=== PATIENT | female | born 1935 | race Caucasian/White ===

== ENCOUNTER → 2017-08-29 | Outpatient (CLI) | payer MEDICARE, OTHER | END | disposition home or self-care (01) | LOC: KCIC US 12:15 | DX: I65.23 Occlusion and stenosis of bilateral carotid arteries (principal) | CPT/HCPCS: 93880 ==

== ENCOUNTER → 2018-09-24 | Outpatient (CLI) | payer MEDICARE, OTHER ==
[2015-02-21 20:00] VITALS: BP 146/76
[~2018-09-24] MED LIST: ALEN70TA3 PO; ASPI325T8 PO; ATOR10TA PO; LEVO75TA PO
--- NOTE | 2018-09-24 16:39 | KCIC ---
Exam : Carotid Duplex with Grayscale Ultrasound and Spectral and Color Doppler Analysis 09/24/2018 4:29 PM Clinical Indications: Carotid stenosis Comparison study: Carotid Doppler May 10, 2015. PQRS Compliance Statement - Stenosis calculations for CT, MR and conventional angiography are based upon measurement of the distal ICA diameter in accordance with the NASCET methodology. Stenosis calculations for carotid ultrasound studies are derived from validated velocity criteria which are known to correlate with the NASCET methodology. Findings: The common, internal and external carotid arteries were examined by grayscale, color and spectral Doppler ultrasound. Diffuse atherosclerotic vascular disease is noted. This is most prominent in the carotid bulbs. Vertebral flow is antegrade bilaterally. Within the mid and distal right internal carotid artery there are elevated velocities. Elevated velocities of the bilateral subclavian arteries noted measuring 164 cm/s on the right and 185 cm/s on the left. The following are the velocities and ratios in the carotid arteries on both sides: RIGHT ICA PV: 173cm/sec RIGHT CCA PV: 108cm/sec RIGHT ICA ED: 33cm/sec RIGHT IC/CCPV: Less than 2 RIGHT VERTEBRAL: antegrade flow LEFT ICA PV: 194cm/sec LEFT CCA PV: 112cm/sec LEFT ICA ED: 30cm/sec LEFT IC/CCPV: Less than 2 LEFT VERTEBRAL: antegrade flow <50% ICA Stenosis: PSV < 125cm/s (EDV < 40cm/s; SVR < 2.0) 50-69% ICA Stenosis: PSV < 125-229cm/s (EDV 40-99cm/s; SVR 2.0-3.9) >70% ICA Stenosis: PSV > 230cm/s (EDV >100cm/s; SVR >4.0) Impression: 1.Elevated velocities in the bilateral internal carotid artery suggestive of 50-69 percent stenosis. Finding of significant elevated velocities on the left is new since comparison study. 2. Elevated velocities within the bilateral subclavian arteries. 3. CT angiography could be considered for further characterization as clinically indicated Electronically signed by: Jayme Esparza MD (09/24/2018 4:36 PM) [id number]
== END | disposition home or self-care (01) ==
LOC: KCIC US 12:19
PROVIDERS: ATTEND Family Medicine
DX: I65.23 Occlusion and stenosis of bilateral carotid arteries (principal)
CPT/HCPCS: 93880

== ENCOUNTER → 2018-10-15 | Outpatient (CLI) | payer MEDICARE, OTHER ==
[2015-02-21 20:00] VITALS: BP 146/76
[~2018-10-15] MED LIST changes: +IOHEXOL 300 MG/ML 100ML VIAL. IV ONE
--- NOTE | 2018-10-15 15:51 | KCIC ---
CTA neck History: Carotid stenosis Technique: After bolus of intravenous contrast, volumetric CT data acquisition was acquired of the neck. Multiplanar reconstruction images to include MIP and 3-D reconstruction images are submitted. Exposure: One or more of the following individualized dose reduction techniques were utilized for this examination: 1. Automated exposure control 2. Adjustment of the mA and/or kV according to patient size 3. Use of iterative reconstruction technique. Comparison: Carotid Doppler exam September 2018 Any determination of stenosis is based on NASCET criteria. Findings: There are normal anatomic origins of the great vessels. There is mild calcified plaque of the left carotid bulb and proximal left external carotid artery without significant stenosis, no significant stenosis of the left cervical internal carotid artery. There is some tortuosity of the proximal to mid left internal carotid artery. There is mild calcified plaque near the right carotid bulb and proximal right external carotid artery. There is no significant focal stenosis of the right cervical internal carotid artery. There is no dissection flap identified of the cervical arterial vasculature. Both vertebral arteries are visualized, slightly dominant left vertebral artery. There is some tortuosity of the proximal cervical vertebral arteries bilaterally. No significant focal stenosis is identified of either vertebral artery. Both vertebral arteries constitute a basilar artery. There is mild bronchiectasis left upper lobe near apex. There is a noncalcified left upper lobe pulmonary nodule about 0.5-0.6 cm image 537 series 6. There is also some other noncalcified left apical density present extending to the pleural surface. There is degree of emphysema of the visualized lung bases. There is multilevel cervical facet degenerative change. There is opacification of about half of the left sphenoid sinus with possible air-fluid level. Impression: 1. There is no significant stenosis of the cervical arterial vasculature. 2. There is a small noncalcified left upper lobe pulmonary nodule. If there are increased risk factors for neoplasm, dedicated chest CT to fully evaluate for nodules is recommended. Regarding the visualized nodule, optional 12 month follow-up could be performed as per revised Fleischner guidelines. Other left apical density although is more likely component of fibrotic change. 3. There is partial opacification of the left sphenoid sinus, could be due to acute sinusitis. Electronically signed by: Chaitanya Bishop MD (10/15/2018 3:48 PM) [facility]
== END | disposition home or self-care (01) ==
LOC: KCIC CT 12:35
PROVIDERS: ATTEND Family Medicine
DX: I65.22 Occlusion and stenosis of left carotid artery (principal)
CPT/HCPCS: 70498; 82565; Q9967

== ENCOUNTER → 2020-03-08 | Outpatient (CLI) | payer MEDICARE, OTHER ==
[2015-02-21 20:00] VITALS: BP 146/76
[~2020-03-08] MED LIST changes: -IOHEXOL 300 MG/ML 100ML VIAL. IV ONE; -LEVO75TA PO; +LEVO75TA90 PO
--- NOTE | 2020-03-08 11:47 | KCIC ---
EXAM: CT CHEST WITHOUT CONTRAST HISTORY: Left upper lobe lung nodule follow-up COMPARISON: CT angiogram neck 10/15/2018 TECHNIQUE: Helical CT of the chest performed without contrast. Coronal and sagittal reformats were obtained. One or more of the following individualized dose reduction techniques were utilized for this examination: 1. Automated exposure control 2. Adjustment of the mA and/or kV according to patient size 3. Use of iterative reconstruction technique. FINDINGS: Thyroid gland and thoracic inlet: Unremarkable. Heart and great vessels: Heart is normal in size. There are pericardial calcifications noted. No pericardial effusion. Coronary artery calcifications are seen. The thoracic aorta is normal in caliber. Mediastinum and live: No lymphadenopathy. Lungs and pleura: The 5 mm noncalcified pulmonary nodules on the left apex is unchanged. There is a 3 mm pulmonary nodule in the left lower lobe (image 126, series 6). Pleural-parenchymal scarring and mild traction bronchiectasis in the medial left apex is unchanged. Chest wall and axillae: Asymmetric outer right breast tissue relative to the left. No axillary lymphadenopathy. Upper abdomen: Prominent main pancreatic duct. There is a 7 mm hyperdense lesion in the superior left renal pole, likely a hemorrhagic cyst. Mild left hydronephrosis versus peripelvic cysts. Mild calcified aortic atherosclerosis. Bones: Mild thoracic degenerative disc disease. IMPRESSION: 1. Unchanged 5 mm nodule in the left apex. There is an additional 3 mm pulmonary nodule in the left lower lobe. Optional twelve-month follow-up CT could be obtained to ensure stability. 2. Pericardial calcifications. 3. Asymmetric increased breast tissue in the outer right breast relative to the left. Correlation could be made with mammogram to exclude mass as indicated. 4. Left peripelvic cysts versus mild hydronephrosis. This could be further evaluated by ultrasound. Electronically signed by: Chasity Lai MD (03/08/2020 11:44 AM) [id number]
== END ==
LOC: KCIC CT 09:07
PROVIDERS: ATTEND Family Medicine
DX: R91.8 Other nonspecific abnormal finding of lung field (principal); I31.1 Chronic constrictive pericarditis; J47.9 Bronchiectasis, uncomplicated; J94.8 Other specified pleural conditions; N64.89 Other specified disorders of breast; I70.0 Atherosclerosis of aorta; I25.10 Atherosclerotic heart disease of native coronary artery without angina pectoris; N28.89 Other specified disorders of kidney and ureter; N13.30 Unspecified hydronephrosis; M51.34 Other intervertebral disc degeneration, thoracic region
CPT/HCPCS: 71250

== ENCOUNTER 2020-03-29 10:13 | Observation (INO) | payer MEDICARE, OTHER ==
[~2020-03-29] VITALS: Ht 152.4 cm; Wt 52.2 kg
[2020-03-29] MEDS ORDERED: IV NORMAL SALINE 1000ML BAG 1,000 ML IV ONE (10:15)
--- NOTE | 2020-03-29 10:45 | PHYS DOC ---
Past Medical History Past Medical History: Diverticulosis, High Cholesterol, Hypothyroid Past Surgical History: Hysterectomy Smoking Status: Never Smoker Alcohol Use: Occasionally Drug Use: None General Adult EDM: Chief Complaint: Syncope HPI: HPI: Patient is a 84 year old female presents via EMS with syncopal episode which occurred approximately 30 minutes prior to arrival. Patient did not hit her head, but did have loss of bladder function. Patient thinks it is dehydration, has not had much fluid in past 24 hours. One week ago patient fell and had hit her head but no LOC. Patient is nauseas but no vomiting. Denies fever or chills. Denies known sick contacts. Denies chest pain. Denies known exposure of COVID-19. Review of Systems: Review of Systems: Constitutional: Denies fever or chills Eyes: Denies redness or eye pain HENT: Denies nasal congestion or sore throat Respiratory: Denies cough or shortness of breath Cardiovascular: Denies chest pain or palpitations GI: Denies abdominal pain and vomiting. Reports nausea : Denies dysuria or hematuria. Reports intermittent cloudy urine. Musculoskeletal: Denies back pain or joint pain Integument: Denies rash or skin lesions Neurologic: Denies headache, focal weakness or sensory changes; reports syncopal episode Complete systems were reviewed and found to be within normal limits, except as documented in this note. Current Medications: Current Medications Medications (Trade) Dose Ordered Sig/Komal Start Time Stop Time Status Last Admin Dose Admin Sodium Chloride 1,000 ml @ 1,000 mls/hr 1X ONCE 03/29/20 10:15 03/29/20 11:14 Allergies: Allergies: Allergies Coded Allergies Type Severity Reaction Last Updated Verified Sulfa (Sulfonamide Antibiotics) Allergy Intermediate 02/21/15 No acetaminophen Allergy Intermediate 02/21/15 No diphenhydramine Allergy Intermediate 02/21/15 No doxycycline Allergy Intermediate 02/21/15 No lorazepam Allergy Intermediate 02/21/15 No propoxyphene Allergy Intermediate 02/21/15 No Physical Exam: PE: Constitutional: Well developed, well nourished, no acute distress, non-toxic appearance HENT: Normocephalic, atraumatic Eyes: PERRL, EOMI, conjunctiva normal, no discharge Neck: Normal range of motion, no tenderness, supple Lungs & Thorax: No respiratory distress, equal chest rise and fall Abdomen: Soft, no tenderness Skin: Warm, dry, no erythema, no rash Extremities: No tenderness, ROM intact, no edema Neurologic: Alert and oriented X 3, normal motor function, normal sensory function, no focal deficits noted Psychologic: Affect normal, judgment normal EKG: EKG: @1021 sinus rhythm, no ST elevation, QRS 84 ms, QT/QTc 422/444 ms Radiology/Procedures: Radiology/Procedures: PROCEDURE: CT HEAD AND CERVICAL SPINE WO Examination: CT head and cervical spine without contrast CT HEAD INDICATION: Reason: syncope, pain COMPARISON: None Available. Exposure: One or more of the following individualized dose reduction techniques were utilized for this examination: 1. Automated exposure control 2. Adjustment of the mA and/or kV according to patient size 3. Use of iterative reconstruction technique TECHNIQUE: 5 mm contiguous axial images were obtained from the skull base to the vertex in both bone and soft tissue algorithm. FINDINGS: Mild bilateral periventricular white matter hypodensities likely chronic small vessel ischemic disease. No evidence of acute intracranial hemorrhage. No extra-axial fluid collections. No mass effect or midline shift. Ventricular size is appropriate. Basal cisterns are patent. No fractures identified.Greene-white differentiation is preserved.Globes and orbits are within normal limits. Moderate-sized mucous retention cyst or polyp identified in the left sphenoid sinus. IMPRESSION: No acute intracranial findings. CT CERVICAL SPINE INDICATION: Reason: syncope, pain COMPARISON: None Available. Technique: 2.5 mm contiguous axial images were obtained from the skull base through the cervicothoracic junction in both bone and soft tissue algorithm. Additional sagittal and coronal reconstructions were also performed. FINDINGS: Vertebral body height and alignment are maintained. Cervical lordosis is preserved. The lateral masses of C1 are aligned upon C2. No fractures identified. The bony canal is patent throughout. Moderate discoid loss identified in the cervical spine throughout the anterior osteophyte formation identified at C5, C6, C7 vertebral levels. The facets are well aligned. The paraspinous soft tissues are unremarkable. Visualized intracranial contents are unremarkable. Linear atelectasis or scarring left apical lung. IMPRESSION: 1. No acute fracture cervical spine. Correlate clinically. 2. Moderate degenerative changes cervical spine. Electronically signed by: Jay Kennedy MD (03/29/2020 11:11 AM) [id number] PROCEDURE: PORTABLE CHEST 1V PORTABLE CHEST 1V 03/29/2020 10:14 AM INDICATION: Syncope COMPARISON: CT chest 03/08/2020 TECHNIQUE: Portable frontal view of the chest is provided. FINDINGS: The cardiomediastinal silhouette is within normal limits. Lungs are clear. There are no significant pleural effusions. There is no pulmonary vascular congestion. No pneumothorax. No suspicious osseous abnormality. IMPRESSION: There is no acute cardiopulmonary process. Electronically signed by: Christine Spears MD (03/29/2020 11:27 AM) [facility] Course & Med Decision Making: Course & Med Decision Making Patient presents with report of syncopal episode prior to arrival. Patient reports 1 week ago she had also fallen and hit her head. Denies use of blood thinners. Denies any pain. Patient neurologically intact. NIHSS 0. Given age and history of head trauma a CT head/cervical spine obtained without acute finding. EKG stable. Labs obtained and posted to chart. Troponin within normal limits. Orthostatic vital signs positive with drop of greater then 20 and systolic blood pressure between sitting and standing. IV fluid hydration therefore provided. Patient lives alone. In discussion with patient and her daughter decision would be best to observe patient at this time. Patient requiring observation admission for further evaluation and treatment. Discussed with Dr. Dsouza (hospitalist) who is in agreement with admission. Discussed findings and plan with patient and family, who acknowledge understanding and agreement. Barron Disclaimer: Barron Disclaimer: This electronic medical record was generated, in whole or in part, using a voice recognition dictation system. Departure Departure Impression: Primary Impression: Syncope Qualified Codes: R55 - Syncope and collapse Disposition: ADMITTED INPT THIS HOSP (Observation) Admitting Physician: SHU (Lianna) Condition: STABLE Referrals: CINDI ELLIOTT MD (PCP) NIHSS Stroke Scale NIH Stroke Scale: NIH Stroke Scale Response (Comments) Value Level of Consciousness: 0 Alert/Responsive 0 LOC Questions: 0 Answers both correctly 0 LOC Commands: 0 Performs both tasks 0 Best Gaze: 0 Normal 0 Visual: 0 No visual loss 0 Facial Palsy: 0 Normal, symmetrical 0 Motor - Left Arm 0 No drift 0 Motor - Right Arm 0 No drift 0 Motor - Left Leg 0 No drift 0 Motor: Right Leg 0 No drift 0 Limb Ataxia: 0 Absent 0 Sensory: 0 No loss 0 Best Language: 0 Normal 0 Dysathria: 0 Normal 0 Extinction and Inattention: 0 Normal 0 Total 0 CROFT,CHEO Maria DO Mar 29, 2020 10:45
[2020-03-29 10:46] LABS: BASO # 0.1 x10^3/uL (0.0-0.2); BASO % 1 % (0-3); EOS # 0.4 x10^3/uL (0.0-0.7); EOS % 6 % (0-3); HEMATOCRIT 41.4 % (36.0-47.0); HEMOGLOBIN 13.9 g/dL (12.0-15.5); LYMPH # 1.5 x10^3/uL (1.0-4.8); LYMPH % 24 % (24-48); MEAN CORPUSCULAR HEMOGLOBIN 31 pg (25-35); MEAN CORPUSCULAR HGB CONC 34 g/dL (31-37); MEAN CORPUSCULAR VOLUME 91 fL (79-100); MONO # 0.4 x10^3/uL (0.0-1.1); MONO % 7 % (0-9); NEUT # 3.9 x10^3/uL (1.8-7.7); NEUT % 62 % (31-73); PLATELET COUNT 181 x10^3/uL (140-400); RED BLOOD COUNT 4.53 x10^6/uL (3.50-5.40); RED CELL DISTRIBUTION WIDTH 13.7 % (11.5-14.5); WHITE BLOOD COUNT 6.3 x10^3/uL (4.0-11.0)
[2020-03-29 10:56] LABS: PROTHROMBIN TIME PATIENT 11.7 SEC (11.7-14.0)
[2020-03-29 10:59] LABS: CALCIUM 8.9 mg/dL (8.5-10.1); CREATININE 0.8 mg/dL (0.6-1.0); GFR 68.7; POTASSIUM 3.9 mmol/L (3.5-5.1)
[2020-03-29 11:05] LABS: ALBUMIN 3.4 g/dL (3.4-5.0); ALBUMIN/GLOBULIN RATIO 1.1 (1.0-1.7); MAGNESIUM 2.2 mg/dL (1.8-2.4); TOTAL BILIRUBIN 0.4 mg/dL (0.2-1.0); TOTAL PROTEIN 6.5 g/dL (6.4-8.2)
--- NOTE | 2020-03-29 11:14 | RAD ---
Examination: CT head and cervical spine without contrast CT HEAD INDICATION: Reason: syncope, pain COMPARISON: None Available. Exposure: One or more of the following individualized dose reduction techniques were utilized for this examination: 1. Automated exposure control 2. Adjustment of the mA and/or kV according to patient size 3. Use of iterative reconstruction technique TECHNIQUE: 5 mm contiguous axial images were obtained from the skull base to the vertex in both bone and soft tissue algorithm. FINDINGS: Mild bilateral periventricular white matter hypodensities likely chronic small vessel ischemic disease. No evidence of acute intracranial hemorrhage. No extra-axial fluid collections. No mass effect or midline shift. Ventricular size is appropriate. Basal cisterns are patent. No fractures identified.Greene-white differentiation is preserved.Globes and orbits are within normal limits. Moderate-sized mucous retention cyst or polyp identified in the left sphenoid sinus. IMPRESSION: No acute intracranial findings. CT CERVICAL SPINE INDICATION: Reason: syncope, pain COMPARISON: None Available. Technique: 2.5 mm contiguous axial images were obtained from the skull base through the cervicothoracic junction in both bone and soft tissue algorithm. Additional sagittal and coronal reconstructions were also performed. FINDINGS: Vertebral body height and alignment are maintained. Cervical lordosis is preserved. The lateral masses of C1 are aligned upon C2. No fractures identified. The bony canal is patent throughout. Moderate discoid loss identified in the cervical spine throughout the anterior osteophyte formation identified at C5, C6, C7 vertebral levels. The facets are well aligned. The paraspinous soft tissues are unremarkable. Visualized intracranial contents are unremarkable. Linear atelectasis or scarring left apical lung. IMPRESSION: 1. No acute fracture cervical spine. Correlate clinically. 2. Moderate degenerative changes cervical spine. Electronically signed by: Jay Kennedy MD (03/29/2020 11:11 AM) [id number]
--- NOTE | 2020-03-29 11:30 | RAD ---
PORTABLE CHEST 1V 03/29/2020 10:14 AM INDICATION: Syncope COMPARISON: CT chest 03/08/2020 TECHNIQUE: Portable frontal view of the chest is provided. FINDINGS: The cardiomediastinal silhouette is within normal limits. Lungs are clear. There are no significant pleural effusions. There is no pulmonary vascular congestion. No pneumothorax. No suspicious osseous abnormality. IMPRESSION: There is no acute cardiopulmonary process. Electronically signed by: Christine Spears MD (03/29/2020 11:27 AM) [facility]
[2020-03-29 11:39] LABS: BILIRUBIN,URINE NEGATIVE (NEG); CLARITY,URINE CLEAR; COLOR,URINE YELLOW; NITRITE,URINE NEGATIVE (NEG); PH,URINE 7.5 (<5.0-8.0); PROTEIN,URINE NEGATIVE (NEG-TRACE); UROBILINOGEN,URINE 0.2 mg/dL (0.2 mg/dL)
[2020-03-29 11:48] LABS: BACTERIA,URINE FEW /HPF (0-FEW)
[2020-03-29] MEDS ORDERED: ASPIRIN 325 MG TABLET PO ONE (12:45)
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
[2020-03-29] MEDS ORDERED: ACETAMINOPHEN 325 MG TABLET. PO PRN (17:30)
[2020-03-29] MEDS ORDERED: ONDANSETRON PF 4 MG/2 ML VIAL. IV PRN (17:30)
[2020-03-29] MEDS ORDERED: DOCUSATE SODIUM 100 MG CAPSULE. PO PRN (17:30)
[2020-03-29] MEDS ORDERED: MAG HYDROX/ALUMINUM HYD/SIMETH 30 ML ORAL.SUSP PO PRN (17:30)
--- NOTE | 2020-03-29 19:45 | NUR ---
The patient, TEJAS ANTOINE, admitted to room 538, plan of care discussed, belongings are documented, use of call light demonstrated, did assist patient to restroom, she did display some unsteadiness in walk, gait, bed alarm on, patient info booklet given, explained the contents to patient, to monitor,
[2020-03-29 20:31] LABS: CALCIUM 8.5 mg/dL (8.5-10.1); CREATININE 0.8 mg/dL (0.6-1.0); GFR 68.7; POTASSIUM 3.8 mmol/L (3.5-5.1)
[2020-03-29] MEDS ORDERED: ATORVASTATIN CALCIUM 10 MG TABLET. PO SCH (21:00)
[2020-03-29] MEDS ORDERED: ENOXAPARIN 40 MG/0.4 ML SYRINGE. SQ SCH (21:00)
[2020-03-29 23:00] VITALS: BP 111/42
[2020-03-30] VITALS (7 sets, daily range): BP systolic 124–168; BP diastolic 34–55
--- NOTE | 2020-03-30 02:04 | NUR ---
Patient's Atorvastatin pulled, given to patient, dropped or lost in trash, so 2nd pill removed and given to the patient.
[2020-03-30 04:49] LABS: CHOLESTEROL/HDL RATIO 1.7
[2020-03-30] MEDS ORDERED: LEVOTHYROXINE 75 MCG TABLET PO SCH ×2 (06:00→07:30)
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
[2020-03-30] MEDS ORDERED: ASPIRIN 325 MG TABLET PO SCH (09:00)
--- NOTE | 2020-03-30 10:45 | PDOC2 ---
CARDIAC CONSULT DATE OF CONSULT Date of Consult DATE: 03/30/20 TIME: 10:36 REASON FOR CONSULT Reason for Consult: Syncope REFERRING PHYSICIAN Referring Physician: Dr. Dsouza SOURCE Source: Chart review, Patient HISTORY OF PRESENT ILLNESS HISTORY OF PRESENT ILLNESS This is an 84 yo female who presented secondary to syncopal episode. Patient reports she woke up yesterday morning as alarm was sounding. Got out of bed to turn it off and began feeling dizzy. Next thing she knew she was on the floor. Did have brief LOC. Does not think she hit her head. No recent chest pain, palpitations, diaphoresis, or SOA. Reports having fall a week and a half ago. This she tripped and felt backwards, hitting her head. Did not pass out. No precipitating dizziness/lightheadedness. PAST MEDICAL HISTORY Cardiovascular: Hyperlipidemia Pulmonary: Other (TB) Psych: Anxiety Endocrine: Hypothyroidism PAST SURGICAL HISTORY Past Surgical History: Hysterectomy FAMILY HISTORY Family History: Heart Disease, Other (sister with aortic aneurysm ) SOCIAL HISTORY Smoke: Quit ALCOHOL: none Drugs: None Lives: Alone CURRENT MEDICATIONS CURRENT MEDICATIONS Current Medications Medications (Trade) Dose Ordered Sig/Komal Route PRN Reason Start Time Stop Time Status Last Admin Dose Admin Aspirin (Conor Aspirin) 325 mg 1X ONCE PO 03/29/20 12:45 03/29/20 12:46 DC 03/29/20 13:14 Aspirin (Conor Aspirin) 325 mg DAILY PO 03/30/20 09:00 03/30/20 08:39 Atorvastatin Calcium (Lipitor) 10 mg HS PO 03/29/20 21:00 03/29/20 22:04 Enoxaparin Sodium (Lovenox 40mg Syringe) 40 mg Q24H SQ 03/29/20 21:00 03/29/20 22:06 Levothyroxine Sodium (Synthroid) 37.5 mcg DAILY06 PO 03/30/20 06:00 03/30/20 06:35 ALLERGIES ALLERGIES: Coded Allergies: Sulfa (Sulfonamide Antibiotics) (Unverified Allergy, Intermediate, 02/21/15) acetaminophen (Unverified Allergy, Intermediate, 02/21/15) diphenhydramine (Unverified Allergy, Intermediate, 02/21/15) doxycycline (Unverified Allergy, Intermediate, 02/21/15) lorazepam (Unverified Allergy, Intermediate, 02/21/15) propoxyphene (Unverified Allergy, Intermediate, 02/21/15) ROS Review of System 14 point ROS conducted with pertinent positives noted above in HPI PHYSICAL EXAM General: Alert, Oriented X3, Cooperative, No acute distress HEENT: Atraumatic, Mucous membr. moist/pink Lungs: Clear to auscultation Heart: Regular rate, Normal S1, Normal S2 Abdomen: Soft, No tenderness Extremities: No edema, Normal pulses Skin: No breakdown, No significant lesion Neuro: Normal speech, Sensation intact Psych/Mental Status: Mental status NL, Other (anxious, tearful) MUSCULOSKELETAL: Osteoarthritic changes both hands VITALS/I&O VITALS/I&O: Vital Signs Date Time Temp Pulse Resp B/P (MAP) Pulse Ox O2 Delivery O2 Flow Rate FiO2 03/30/20 08:10 149/41 (77) 03/30/20 07:00 98.3 64 18 96 Room Air 98.3 I & O 03/29/20 03/29/20 03/30/20 15:00 23:00 07:00 Intake Total 1000 ml 400 ml 350 ml Balance 1000 ml 400 ml 350 ml LABS Lab: Laboratory Tests Test 03/29/20 11:20 03/29/20 16:04 03/29/20 19:55 03/30/20 04:17 Urine Collection Type Unknown Urine Color Yellow Urine Clarity Clear Urine pH 7.5 (<5.0-8.0) Urine Specific [place] 1.010 (1.000-1.030) Urine Protein Negative mg/dL (NEG-TRACE) Urine Glucose (UA) Negative mg/dL (NEG) Urine Ketones (Stick) Negative mg/dL (NEG) Urine Blood Small (NEG) Urine Nitrite Negative (NEG) Urine Bilirubin Negative (NEG) Urine Urobilinogen Dipstick 0.2 mg/dL (0.2 mg/dL) Urine Leukocyte Esterase Trace (NEG) Urine RBC 11-20 /HPF (0-2) Urine WBC 1-4 /HPF (0-4) Urine Squamous Epithelial Cells Few /LPF Urine Bacteria Few /HPF (0-FEW) Urine Mucus Slight /LPF Troponin I Quantitative < 0.017 ng/mL (0.000-0.055) < 0.017 ng/mL (0.000-0.055) Sodium Level 143 mmol/L (136-145) Potassium Level 3.8 mmol/L (3.5-5.1) Chloride Level 107 mmol/L (98-107) Carbon Dioxide Level 28 mmol/L (21-32) Anion Gap 8 (6-14) Blood Urea Nitrogen 18 mg/dL (7-20) Creatinine 0.8 mg/dL (0.6-1.0) Estimated GFR (Cockcroft-Gault) 68.7 Glucose Level 94 mg/dL (70-99) Calcium Level 8.5 mg/dL (8.5-10.1) D-Dimer (Paty) 0.43 ug/mlFEU (0.00-0.50) Triglycerides Level 43 mg/dL (0-150) Cholesterol Level 150 mg/dL (0-200) LDL Cholesterol, Calculated 53 mg/dL (0-100) VLDL Cholesterol, Calculated 9 mg/dL (0-40) Non-HDL Cholesterol Calculated 62 mg/dL (0-129) HDL Cholesterol 88 mg/dL (40-60) H Cholesterol/HDL Ratio 1.7 Laboratory Tests 03/29/20 19:55 ECHOCARDIOGRAM ECHOCARDIOGRAM <Conclusion> Normal LV systolic function and wall motion. EF 65% No significant valvular abnormalities. No right to left shunt. No clear cardiac source of CVA identified. DATE: 05/23/15 1607 ASSESSMENT/PLAN ASSESSMENT/PLAN 1. Syncope; CT of head without acute findings. Noted to be orthostatic in ED with > 20 point drop in BP from sitting to standing. No acute arrhythmias on tele 2. Orthostatic hypotension; improved s/p IVFs. 3. Hyperlipidemia; statin 4. Hypothyroidism 5. Anxiety Recommendations Echo to assess LV systolic function TSH IVFs Repeat orthos Encouraged adequate hydration SHANE MAURICE APRN Mar 30, 2020 10:45
--- NOTE | 2020-03-30 12:28 | RAD ---
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 TECHNIQUE AND FINDINGS: Real-time hill scale and color and spectral Doppler evaluation of the carotid and vertebral arteries is performed. There is mild atherosclerotic plaques within the bulbs bilaterally, with minimal atherosclerosis seen elsewhere. There is no evidence of hemodynamically significant stenosis today, with previously suggested stenosis of left internal carotid artery downgraded by this exam. Peak systolic velocity of the right common carotid artery is 70 70 cm/s, and of the right internal carotid artery is 100 cm/s, constituting a ratio 1.4. Highest end-diastolic velocity of the right internal carotid artery is 33 cm/s. Peak systolic velocity of the left common carotid artery is 85 cm/s, and of the left internal carotid artery 129 cm/s, constituting a ratio of 1.5. End diastolic velocity in the left internal carotid artery is 35 cm/s. There is antegrade flow within both vertebral arteries. IMPRESSION: 1. Less than 50 percent stenosis of both internal carotid arteries with antegrade flow in the bilateral vertebral arteries. Stenosis calculations for CT, MR and conventional angiography are based upon measurement of the distal ICA diameter in accordance with the NASCET methodology. Stenosis calculations for carotid ultrasound studies are derived from validated velocity criteria which are known to correlate with the NASCET methodology. Electronically signed by: Derrick Valverde MD (03/30/2020 12:25 PM) [id number]
--- NOTE | 2020-03-30 12:29 | NUR ---
SW following. Discussed with RN, pt from home with daughter, and granddaughter, room air, cardiac diet. PT/OT recommending home independent. Pt having an ECHO today. If ECHO is fine, RN anticipates possible discharge home today. SW will continue to follow.
[2020-03-30] MEDS ORDERED: LEVO75TA90 PO (14:57)
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
--- NOTE | 2020-03-30 16:48 | NUR ---
pt discharged home with daughter. meds and followup reviewed. IV removed, cath intact. pt stable upon dc.
--- NOTE | 2020-03-31 07:58 | CARD ---
MR#: [id number] Date of Study: 03/30/2020 Ordering Physician: ALKA KRAMER, Referring Physician: ALKA KRAMER, Tech: Alena Lozada APPROVED REPORT EXAM: Two-dimensional and M-mode echocardiogram with Doppler and color Doppler. Other Information Quality : GoodHR: 68bpm INDICATION Syncope 2D DIMENSIONS RVDd2.1 (2.9-3.5cm)Left Atrium(2D)3.1 (1.6-4.0cm) IVSd0.8 (0.7-1.1cm)Aortic Root(2D)3.0 (2.0-3.7cm) LVDd4.1 (3.9-5.9cm)LVOT Diameter1.8 (1.8-2.4cm) PWd1.1 (0.7-1.1cm)LVDs2.5 (2.5-4.0cm) FS (%) 37.9 %SV49.5 ml LVEF(%)68.6 (>50%) Aortic Valve AoV Peak Deepak.136.3cm/sAoV VTI28.4cm AO Peak GR.7.4mmHgLVOT Peak Deepak.92.9cm/s LVOT VTI 23.25cmAO Mean GR.4mmHg IGNACIO (VMAX)1.14dt4PDX (VTI)2.19cm2 AI P 1/2 Agsk067ou Mitral Valve MV E Iicqkzlk43.2cm/sMV DECEL [id number] MV A Xenrutkv395.4cm/sMV ZIR75mz E/A Ratio0.7MVA (PHT)2.88cm2 TDI E/Lateral E'12.9E/Medial E'10.5 Pulmonary Valve PV Peak Tbmnhwyq98.3cm/sPV Peak Grad.4mmHg Tricuspid Valve TR P. Dqitkwiq194ev/sRAP RSGUPBXK5khUg TR Peak Gr.21aoGjJNHV95wuPw Pulmonary Vein S1 Hlrnfufg72.4cm/sD2 Kwnyumya24.0cm/s PVa [id number] LEFT VENTRICLE The left ventricle is normal size. There is normal left ventricular wall thickness. The left ventricu lar systolic function is normal and the ejection fraction is within normal range. The Ejection Fracti on is 55-60%. There is normal LV segmental wall motion. Transmitral Doppler flow pattern is Grade I-a bnormal relaxation pattern. RIGHT VENTRICLE The right ventricle is normal size. There is normal right ventricular wall thickness. The right ventr icular systolic function is normal. ATRIA The left atrium size is normal. The right atrium size is normal. The interatrial septum is intact wit h no evidence for an atrial septal defect or patent foramen ovale as noted on 2-D or Doppler imaging. AORTIC VALVE The aortic valve is calcified but opens well. Doppler and Color Flow revealed trace to mild aortic re gurgitation. There is no significant aortic valvular stenosis. Calculated aortic valve area is 2.15 c m2 with maximum pressure gradient of 9 mmHg and mean pressure gradient of 5 mmHg. MITRAL VALVE The mitral valve is normal in structure and function. There is no evidence of mitral valve prolapse. There is no mitral valve stenosis. Doppler and Color-flow revealed trace mitral regurgitation. TRICUSPID VALVE The tricuspid valve is normal in structure and function. Doppler and Color Flow revealed trace tricus pid regurgitation with an estimated PAP of 22 mmHg. There is no tricuspid valve stenosis. PULMONIC VALVE The pulmonic valve is not well visualized. Doppler and Color Flow revealed trace pulmonic valvular re gurgitation. GREAT VESSELS The aortic root is normal in size. The IVC is normal in size and collapses >50% with inspiration. PERICARDIAL EFFUSION There is no evidence of significant pericardial effusion. Critical Notification Critical Value: No <Conclusion> The left ventricular systolic function is normal and the ejection fraction is within normal range. Th e Ejection Fraction is 55-60%. There is normal LV segmental wall motion. Signed by : Melchor Bell, Electronically Approved : 03/31/2020 07:58:14
== END 2020-03-30 15:55 | disposition home or self-care (01) ==
LOC: ER 10:13 → ED HOLD 12:45 → 5 NORTH 19:09
PROVIDERS: ADMIT Internal Medicine; ATTEND Internal Medicine
DX: I95.1 Orthostatic hypotension (principal); E03.9 Hypothyroidism, unspecified; E78.5 Hyperlipidemia, unspecified; F41.9 Anxiety disorder, unspecified; E78.00 Pure hypercholesterolemia, unspecified; R29.6 Repeated falls; R32 Unspecified urinary incontinence; G47.62 Sleep related leg cramps; Z90.710 Acquired absence of both cervix and uterus; Z79.82 Long term (current) use of aspirin; Z87.891 Personal history of nicotine dependence
CPT/HCPCS: 36415; 70450; 71045; 72125; 80048; 80053; 80061; 81001; 82553; 82607; 83735; 84443; 84484; 85025; 85379; 85610; 85730; 87086; 93306; 93880; 96360; 96372; 97162; 97166; 97530; 97535; 99285; G0378; J1650; J7030; G0379

== ENCOUNTER → 2020-04-12 | Outpatient (CLI) | payer MEDICARE, OTHER ==
[2020-03-30 15:00] VITALS: BP 168/55
--- NOTE | 2020-04-12 16:36 | KCIC ---
Complete retroperitoneal ultrasound INDICATION: Abnormal CT chest of 03/08/2020 COMPARISON: CT chest of 03/08/2020, performed without IV contrast. TECHNIQUE: Grayscale and color Doppler imaging of the retroperitoneum focused on the urinary tract was performed. FINDINGS: The right kidney measures 10 cm x 4.1 x 4.9 cm and demonstrates mild pelviectasis measuring 8 mm.. The left kidney measures 9.4 x 5.8 x 4.3 cm and demonstrates grade 1 hydronephrosis with the renal pelvis measuring 1.5 cm. No shadowing stones in either kidney. No discrete renal masses identified either by ultrasound. The urinary bladder prevoid has a measured volume of 63 mL. No filling defects are noted. Bilateral ureteral jets are identified. Post void images not acquired. IMPRESSION: Left greater than right bilateral hydronephrosis. Electronically signed by: Shilo Harrington MD (04/12/2020 4:34 PM) [id number]
== END ==
LOC: KCIC US 15:27
PROVIDERS: ATTEND Family Medicine
DX: N13.39 Other hydronephrosis (principal); R93.429 Abnormal radiologic findings on diagnostic imaging of unspecified kidney
CPT/HCPCS: 76770

== ENCOUNTER → 2021-08-15 | Outpatient (CLI) | payer MEDICARE, OTHER ==
[2020-03-30 15:00] VITALS: BP 168/55
--- NOTE | 2021-08-15 13:04 | KCIC ---
EXAM: XR KNEE 3 VIEWS_RT 08/15/2021 12:28 PM CLINICAL INDICATION: Fall, swelling, hurts to bear weight COMPARISON: None TECHNIQUE: AP, oblique, and lateral views of the right knee FINDINGS: There is a transverse fracture of the patella with 4 mm distraction of fragments. There is 4 mm offset at the articular surface. No other fracture or malalignment. The bones appear deminerali zed. Joint spaces are maintained. There is a small joint effusion and mild prepatellar soft tissue th ickening. IMPRESSION: Acute transverse patellar fracture. Electronically signed by: Chasity Lai MD (08/15/2021 1:02 PM) [id number]
== END ==
LOC: KCIC 12:22
PROVIDERS: ATTEND Nurse Practitioner
DX: S82.031A Displaced transverse fracture of right patella, initial encounter for closed fracture (principal); M25.461 Effusion, right knee; M79.89 Other specified soft tissue disorders; W19.XXXA Unspecified fall, initial encounter; Y93.89 Activity, other specified; Y92.89 Other specified places as the place of occurrence of the external cause; Y99.8 Other external cause status
CPT/HCPCS: 73562

== ENCOUNTER → 2021-08-29 | Outpatient (CLI) | payer MEDICARE, OTHER ==
[2020-03-30 15:00] VITALS: BP 168/55
[~2021-08-29] MED LIST changes: +CHOL10004 PO; +ENOX30DI3 SQ; +HYDR-2761 PO; +OM3-1CAP PO
--- NOTE | 2021-08-29 16:10 | KCIC ---
EXAMINATION: MRI RIGHT LOWER EXTREMITY JOINT WITHOUT INDICATIONS: Right knee pain. Fell 08/14/2021.. TECHNIQUE: Multiplanar multisequence MRI of the right knee was obtained without contrast. COMPARISON: Right knee radiograph 08/15/2009 FINDINGS: MENISCI: The medial and lateral menisci are intact. LIGAMENTS: The anterior and posterior cruciate ligaments are intact. The medial collateral ligament and lateral collateral ligament complex are intact. EXTENSOR MECHANISM: Mild thickening and increased signal of the proximal patellar tendon. Quadriceps tendon is intact. Retinacula are intact. BONES AND CARTILAGE: There is a mildly displaced acute or subacute transverse fracture through the m id patella. This results in 4 mm offset at the articular surface centrally. No other fracture. There is diffuse cartilage thinning in all 3 compartments with a focal full-thickness cartilage defect in t he posterior lateral tibial plateau. OTHER: Small joint effusion. There is prepatellar bursitis and diffuse subcutaneous edema/fluid. Sma ll Perez cyst containing some debris. Muscles and remaining tendons are intact. IMPRESSION: 1. Acute or subacute transverse fracture of the patella with 4 mm offset at the articular surface xochitl trally. 2. No meniscal or ligamentous injury. 3. Mild thickening of the proximal patellar tendon consistent with tendinopathy. 4. Diffuse cartilage thinning. 5. Small joint effusion. Prepatellar bursitis. Diffuse subcutaneous edema. Electronically signed by: Chasity Lai MD (08/29/2021 4:08 PM) [id number]
== END ==
LOC: KCIC MRI 13:01
PROVIDERS: ATTEND Nurse Practitioner
DX: S82.031A Displaced transverse fracture of right patella, initial encounter for closed fracture (principal); M71.21 Synovial cyst of popliteal space [Baker], right knee; M25.461 Effusion, right knee; R60.0 Localized edema; M25.861 Other specified joint disorders, right knee; X58.XXXA Exposure to other specified factors, initial encounter; Y93.89 Activity, other specified; Y92.89 Other specified places as the place of occurrence of the external cause; Y99.8 Other external cause status
CPT/HCPCS: 73721

== ENCOUNTER 2021-09-12 08:05 | Inpatient (IN) | payer MEDICARE, OTHER ==
[2021-09-12] VITALS (9 sets, daily range): BP systolic 138–155; BP diastolic 39–95
[~2021-09-12] VITALS: Ht 152.4 cm; Wt 56.0 kg
[~2021-09-12 08:05] MED LIST changes: -ENOX30DI3 SQ; -HYDR-2761 PO; +HYDROmorphone 2 MG/ML INJ. IVP PRN; +IV RINGERS,LACTATED 1000ML 1,000 ML IV SCH; +MORPHINE SULFATE 2 MG/ML INJ. IVP PRN; +PROCHLORPERAZINE 10 MG/2 ML VIAL. IVP PRN; +ceFAZolin SODIUM IV Push 1 GM VIAL. IVP PRN; +fentaNYL PF VIAL 100 MCG/2 ML VIAL IVP PRN
[2021-09-12] MEDS ORDERED: LIDOCAINE 1% PF 30 ML VIAL. ONE (09:20)
[2021-09-12] MEDS ORDERED: BUPIVACAINE MPF 0.5% 30 ML VIAL. ONE (09:21)
[2021-09-12] MEDS ORDERED: LIDOCAINE 2% PF 5 ML VIAL. ONE (09:22)
[2021-09-12] MEDS ORDERED: DEXAMETHASONE SOD PHOS 4 MG/ML VIAL ONE (09:22)
[2021-09-12] MEDS ORDERED: SEVOFLURANE 61 TO 120 MINUTES. IH ONE (09:22)
[2021-09-12] MEDS ORDERED: ONDANSETRON PF 4 MG/2 ML VIAL. ONE (09:22)
[2021-09-12] MEDS ORDERED: PROPOFOL 10 MG/ML (20ML) VIAL. IV ONE ×2 (09:22→11:05)
[2021-09-12] MEDS ORDERED: fentaNYL PF VIAL 100 MCG/2 ML VIAL ONE (09:23)
[2021-09-12] MEDS ORDERED: MORPHINE SULFATE 5 MG, KETOROLAC 30MG VIAL 30 MG, ROPIVacaine 0.5% PF 60 ML, EPINEPHrin... INT ART ONE (10:00)
--- NOTE | 2021-09-12 13:07 | PDOC4 ---
Operative Note Operative Note Date of procedure: 09/12/2021 Surgeon: Ramon Boyle Gun Fertilizer: Krishan Andre and Aiyana Chacko Preoperative diagnosis: Displaced transverse right patella fracture Postoperative diagnosis: Same Procedure performed: Open reduction internal fixation right patella fracture Anesthesia: General Findings: Subacute fracture with abundant fibrotic tissue in the fracture site Tourniquet time: Less than an hour Blood loss: 10 mL Complications: None Components inserted: [employer] 4.0 mm cannulated screws with 18-gauge steel wire Reason for procedure: Patient is a very pleasant 86-year-old female who had a fall about 1 month ago and had difficulty ambulating and presented to her primary care provider who referred her to see myself. Her and her daughter and I had a discussion of the risk benefits alternatives and rationale to the above surgery and she elected to proceed. Description of procedure: Patient was greeted in the preoperative area by myself or the correct extremity was verified and marked. She was taken to the operative suite and antibiotics were started as she was brought back. Once in the operating room, she was transferred gently supine to the operating room table and secured to the bed with all pressure points padded. She underwent successful induction of a general anesthetic. Nonsterile tourniquet was secured in place to her right upper thigh. Chlorhexidine prescribed was accomplished to right lower extremity. We then proceeded to prep and drape right lower extremity in her usual sterile fashion and conducted our standard preoperative timeout. After this the extremity was exsanguinated with an Esmarch and tourniquet insufflated to 250 mmHg. I then palpated marked surface anatomy and meghan a line on her skin for my standard anterior midline exposure. I incised skin with a scalpel and dissected subcutaneous tissue and cauterize bleeders with electrocautery. I developed my subfascial plane to expose the quadriceps and patellar tendon as well as the borders of the patella. I was not able to palpate the fracture site so I brought in C arm to help localize that. I used a small rongeur to debride the fibrotic tissue and took my time with this. There was an abundant amount of fibrotic tissue interposed in the fracture site. The retinaculum was intact medially and laterally. After debriding the fibrotic tissue and early callus, I irrigated out the joint while I distracted the fracture site. I then used a large [id number] clamp and direct manipulation digitally to achieve better fracture reduction. I checked reduction under AP and lateral fluoroscopy. I then placed my 2 guidepins and ensure they stop short of bicortical purchase. I then measured and drilled the near the side and placed my screws under hand power. I then removed the guide pins and shuttled an 18-gauge steel wire through in a [id number] fashion and then tensioned at. I then gently impacted the wire down. I then took my final images. After this I thoroughly irrigated out the operative field with sterile saline. I then injected my periarticular mixture into the periincisional subcutaneous tissue. After this, gentle range of motion demonstrated no gapping up to about 30 degrees of flexion. Passively, her extension was 0. After this, I closed deep layers with #2 ultra braid over the wire. I then closed fascia with simple inte rrupted #1 Vicryl followed by inverted interrupted 2-0 Vicryl in the subcutaneous tissue and a running 3-0 Monocryl in a buried subcuticular fashion for skin. All counts were correct x2 prior to wound closure. No complications. Patient tolerated surgery well. At the conclusion, the leg was cleansed and dried and a soft sterile bulky dressing was applied followed by a hinged knee brace locked in extension. Postoperative plan is to admit her to the floor under the care of the hospitalist whom I had spoken with. I will follow along. She can weight-bear as tolerated with leg brace locked in extension. I would anticipate she will need placement. RAMON BOYLE II, MD Sep 12, 2021 13:07
--- NOTE | 2021-09-12 13:39 | NUR ---
admitted to room 404 post patella fixation. daughter at bedside. she has good pulses, sensation and motion bilateral lower extremities. Brace in place to right leg locked in extension. daughter at bedside. she is rating her pain an "8". awaiting admitting orders.
[2021-09-12] MEDS: HYDROcodone/APAP 5/325MG 1 TAB TABLET PO PRN ×2 (13:51→21:06)
[2021-09-12] MEDS: ceFAZolin SODIUM IV Push 1 GM VIAL. IVP SCH ×2 (15:05→21:08)
--- NOTE | 2021-09-12 15:32 | HP ---
DATE OF SERVICE: 09/12/2021 ADMIT DATE: 09/12/2021 CHIEF COMPLAINT: Right knee fracture. HISTORY OF PRESENT ILLNESS: The patient is a pleasant 86-year-old female who fell a month ago. [place] At that time, she probably fractured her knee, but she was not aware of it. She has been hobbling around on a sore knee for several weeks. There was some imaging done recently when she finally agreed to go to the doctor, it showed a patellar fracture. Today, she went for open reduction and internal fixation of the right patellar fracture. She is currently being examined on the medical floor where she has just arrived postoperatively. PAST MEDICAL HISTORY: Includes the above-mentioned patellar fracture, hyperlipidemia, hypothyroidism. ALLERGIES: SULFA, DIPHENHYDRAMINE, DOXYCYCLINE, FEXOFENADINE, LORAZEPAM, PROPOXYPHENE NAPSYLATE. FAMILY HISTORY: Diabetes. SOCIAL HISTORY: She does not drink, smoke or take drugs. She is . Her was in the [employer]. He worked on aircraft. She used to smoke socially, mainly she would smoke a cigarette when she got a match. She states that a pack would last her a year. 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 MEDICATIONS: Reviewed. She is on Lipitor, aspirin, Synthroid, vitamin D and eyedrops. REVIEW OF SYSTEMS: GENERAL: No history of weight change, weakness or fevers. SKIN: No bruising, hair changes or rashes. EYES: No blurred, double or loss of vision. NOSE AND THROAT: No history of nosebleeds, hoarseness or sore throat. HEART: No history of palpitations, chest pain or shortness of breath on exertion. LUNGS: Denies cough, hemoptysis, wheezing or shortness of breath. GASTROINTESTINAL: Denies changes in appetite, nausea, vomiting, diarrhea or constipation. GENITOURINARY: No history of frequency, urgency, hesitancy or nocturia. NEUROLOGIC: Denies history of numbness, tingling, tremor or weakness. PSYCHIATRIC: No history of panic, anxiety or depression. ENDOCRINE: No history of heat or cold intolerance, polyuria or polydipsia. EXTREMITIES: She complains of right knee pain. PHYSICAL EXAMINATION: VITALS: Within normal limits and are stable. GENERAL: No apparent distress. Alert and oriented. HEENT: Normal cephalic atraumatic, external auditory canals are patent EYES: Extraocular muscles are intact, pupils are equally round and reactive to light and accommodation MUSCULOSKELETAL: Well developed, well nourished, good range of motion ENDOCRINE: No thyromegaly was palpated LYMPHATICS: No cervical chain or axillary nodes were noted HEMATOPOIETIC: No bruising NECK: Supple, no JVD, no thyromegaly was noted. LUNGS: Clear to auscultation in all lung koch without rhonchi or wheezing. HEART: RRR, S1, S2 present. Peripheral pulses intact, no obvious murmurs were noted. ABDOMEN: Soft, nontender. Positive bowel sounds no organomegaly, normal bowel sounds. EXTREMITIES: She has a knee brace with clean, dry, intact dressing on the right. NEUROLOGIC: Normal speech, normal tone. A and O x 3, moves all extremities, no obvious focal deficits. PSYCHIATRIC: Normal affect, normal mood. Stable. SKIN: No ulcerations or rashes, good skin turgor, no jaundice. VASCULAR: Good capillary refill, neurovascular bundle appears to be intact. ASSESSMENT AND PLAN: Postop right knee internal fixation of the fractured patella. Postoperatively, she is doing well. We will resume her home meds. Encourage p.o. intake. Wound care, PT, OT. I called manager social services to get her [facility] unit evaluation. LULU/YANET/GEETA DR: LULU/faviola TID: [id number]
[2021-09-12] MEDS: OMEGA-3 FATTY ACIDS/FISH OIL 1,000 MG CAPSULE. PO SCH (21:06)
[2021-09-12] MEDS: ATORVASTATIN CALCIUM 10 MG TABLET. PO SCH (21:07)
[2021-09-13 03:00] VITALS: BP 144/59
[2021-09-13] MEDS: LEVOTHYROXINE 75 MCG TABLET PO SCH ×2 (05:15→08:19)
[2021-09-13] MEDS: ceFAZolin SODIUM IV Push 1 GM VIAL. IVP SCH (05:16)
[2021-09-13 07:30] VITALS: BP 121/58
[2021-09-13] MEDS: OMEGA-3 FATTY ACIDS/FISH OIL 1,000 MG CAPSULE. PO SCH ×2 (08:19→21:09)
[2021-09-13] MEDS: HYDROcodone/APAP 5/325MG 1 TAB TABLET PO PRN ×3 (08:19→19:41)
[2021-09-13] MEDS: CHOLECALCIFEROL (VITAMIN D3) 1,000 UNIT TABLET PO SCH (08:19)
--- NOTE | 2021-09-13 08:25 | PDOC ---
ORTHO PROGRESS NOTES DATE: 09/13/21 TIME: 08:24 Subjective Her pain has been tolerable. She tolerated a regular diet yesterday. No particular complaints today. Vitals Vital Signs Date Time Temp Pulse Resp B/P (MAP) Pulse Ox O2 Delivery O2 Flow Rate FiO2 09/13/21 08:19 20 Room Air 09/13/21 03:00 97.8 84 144/59 (87) 94 97.8 09/12/21 11:45 10.0 Labs Laboratory Tests Test 09/12/21 08:30 POC SARS CoV-2 Antigen Negative (NEGATIVE) Laboratory Tests Test 09/12/21 08:30 POC SARS CoV-2 Antigen Negative (NEGATIVE) Notes She is awake and alert in bed. Normal motor and sensation are present in her foot. Toes are warm. Dressing is intact and dry. Hinged knee brace is in place. Assessment and Plan We will continue her current pain regimen. She will start Lovenox today. I discussed this with the nurse. She would like to go to [facility] rehab as she has been there before. PT and OT today as well. LOKESH BOYLE II, MD Sep 13, 2021 08:25
[2021-09-13 11:01] VITALS: BP_SYST 138; BP_DIAS 148; BP_DIAS 48
[2021-09-13] MEDS: ENOXAPARIN 30 MG/0.3 ML SYRINGE. SQ SCH (14:06)
[2021-09-13] MEDS: ASPIRIN 325 MG TABLET PO SCH (14:07)
[2021-09-13 15:12] VITALS: BP 124/37
--- NOTE | 2021-09-13 15:29 | PDOC ---
[employer] PROGRESS NOTE Date of Service DOS: DATE: 09/13/21 TIME: 15:22 Chief Complaint Chief Complaint Right patella fracture - s/p ORIF. Will need acute rehab. F/u post-op H&H, bowel regimen Frequent falls - will have PT assess gait and OT assess her ADLs as she lives alone and may not be safe for home discharge. Hypothyroidism - given her weight likely needs a dose reduction in her levothyroxine HLD - cont statin Anxiety - relaxation exercises reviewed. Urinary incontinence - has external catheter to suction Leg cramps FEN - Regular diet PPX - lovenox FULL CODE Dispo - inpatient History of Present Illness History of Present Illness Ms Estrada is an 86 yo female w/ PMHx hypothyroidism, HLD who presents for elective Open reduction internal fixation right patella fracture on 09/12/2021. Historically, she fell a month ago at the [employer] onto a metal grate. She had been having pain in her right knee for a month since the fall and was referred to ortho by her PCP after outpatient imaging revealed a patella fracture. 09/13: Having some pain after work with therapy from chair to bed. No numbness or tingling no swelling. She has discussed rehab options, specifically requested [place] [facility] acute rehab. No bowel movement as of yet Vitals/I&O Vitals/I&O: Vital Signs Date Time Temp Pulse Resp B/P (MAP) Pulse Ox O2 Delivery O2 Flow Rate FiO2 09/13/21 15:12 98.0 65 18 124/37 (66) 96 Room Air 98.0 09/12/21 11:45 10.0 I & O 09/12/21 09/12/21 09/13/21 15:00 23:00 07:00 Intake Total 800 ml Output Total 10 ml 250 ml Balance 790 ml -250 ml Physical Exam Lungs: Clear Comment Review of Relevant I have reviewed the following items varsha (where applicable) has been applied. Medications: Current Medications Medications (Trade) Dose Ordered Sig/Komal Route PRN Reason Start Time Stop Time Status Last Admin Dose Admin Cefazolin Sodium (Ancef) 1 gm Q8HRS IVP 09/12/21 18:00 09/13/21 06:01 DC 09/13/21 05:16 Aspirin (Conor Aspirin) 325 mg QODAY PO 09/13/21 09:00 09/13/21 14:07 Atorvastatin Calcium (Lipitor) 10 mg HS PO 09/12/21 21:00 09/12/21 21:07 Vitamin D (Vitamin D3) 1,000 unit DAILY PO 09/13/21 09:00 09/13/21 08:19 Levothyroxine Sodium (Synthroid) 37.5 mcg DAILYAC PO 09/13/21 07:30 09/13/21 08:19 Fish Oil (Fish Oil) 1,000 mg BID PO 09/12/21 21:00 09/13/21 08:19 Enoxaparin Sodium (Lovenox 30mg Syringe) 30 mg Q24H SQ 09/13/21 13:00 09/13/21 14:06 Justifications for Admission Other Justification ALKA KRAMER MD Sep 13, 2021 15:29
[2021-09-13 19:00] VITALS: BP 149/47
[2021-09-13] MEDS: ATORVASTATIN CALCIUM 10 MG TABLET. PO SCH (21:09)
[2021-09-13 23:00] VITALS: BP 143/55
[2021-09-14 03:04] VITALS: BP 157/55
[2021-09-14] MEDS: HYDROcodone/APAP 5/325MG 1 TAB TABLET PO PRN ×4 (05:03→22:52)
[2021-09-14 07:15] VITALS: BP 156/63
[2021-09-14 07:42] LABS: HEMATOCRIT 37.3 % (36.0-47.0); HEMOGLOBIN 12.3 g/dL (12.0-15.5); RED BLOOD COUNT 4.12 x10^6/uL (3.50-5.40); RED CELL DISTRIBUTION WIDTH 13.9 % (11.5-14.5); WHITE BLOOD COUNT 6.8 x10^3/uL (4.0-11.0)
[2021-09-14 08:09] LABS: CALCIUM 8.2 mg/dL (8.5-10.1); CREATININE 0.6 mg/dL (0.6-1.0); GFR 95.2; POTASSIUM 3.7 mmol/L (3.5-5.1)
[2021-09-14 10:45] VITALS: BP 155/58
[2021-09-14] MEDS: OMEGA-3 FATTY ACIDS/FISH OIL 1,000 MG CAPSULE. PO SCH ×2 (11:40→20:20)
[2021-09-14] MEDS: CHOLECALCIFEROL (VITAMIN D3) 1,000 UNIT TABLET PO SCH (11:40)
[2021-09-14] MEDS ORDERED: HYDR-2761 PO (11:47)
[2021-09-14] MEDS ORDERED: ENOX30DI3 SQ (11:47)
--- NOTE | 2021-09-14 11:49 | SNU/HH DC ---
DISCHARGE ORDERS DISCHARGE INFORMATION: DISCHARGE DATE: Sep 14, 2021 CONDITION ON DISCHARGE: Stable CODE STATUS: Code Status: Full SHELTER: SNF STAY <30 DAYS: Yes POST DISCHARGE ORDERS: ACTIVITY ORDERS: Activity as tolerated WEIGHT BEARING STATUS: As tolerated DIET AFTER DISCHARGE: Cardiac CHECKS AFTER DISCHARGE: CHECKS AFTER DISCHARGE: Check blood press - daily FOLLOW-UP: PHYSICIAN FOLLOW-UP: PCP within 2 weeks of discharge ADDITIONAL FOLLOW-UP: Orthopedic surgery in 2 weeks LAB ORDERS FOR FOLLOW-UP: CBC, CMP upon admission ANTICOAGULATION F/U NEEDED: For DVT prophylaxis Lovenox for 2 weeks for DVT prophylaxis TREATMENT/EQUIPMENT ORDERS: Physical Therapy For: Evalulation/Treatment Occupational Therapy For: Evaluation/Treatment DISCHARGE MEDICATIONS: Home Meds Active Scripts Hydrocodone Bit/Acetaminophen (HYDROCODONE-APAP 5-325 ) 1 Tab Tablet, 1 TAB PO PRN Q6HRS PRN for PAIN for 3 Days, #12 TAB Prov:SARTHAK KIM MD 09/14/21 Enoxaparin Sodium (ENOXAPARIN SODIUM) 30 Mg/0.3 Ml Disp.syrin, 30 MG SQ Q24H for DVT prophylaxis for 14 Days, #14 DIS.SYR Prov:SARTHAK KIM MD 09/14/21 Levothyroxine Sodium (SYNTHROID) 75 Mcg Tablet, 37.5 MCG PO DAILYAC for Hypothyroidism for 30 Days, #15 TAB 0 Refills Prov:ALKA KRAMER MD 03/30/20 Reported Medications Om3-Dha/Epa/D3/Lutein/Zeazanth (EYE OMEGA ADVANTAGE SOFTGEL) 1 Each Capsule, 1 EACH PO BID for EYE VITAMIN, CAP 09/05/21 Cholecalciferol (Vitamin D3) (Vitamin D3 ) 25 Mcg Tablet, 25 MCG PO DAILY for SUPPLEMENT, TAB 1,000 UNITS = 25 MCG 09/05/21 Aspirin (ASPIRIN) 325 Mg Tablet, 325 MG PO QODAY for HEART VITAMIN 4 TIMES/WEEK 05/10/15 Atorvastatin Calcium (LIPITOR) 10 Mg Tablet, 10 MG PO HS for FOR CHOLESTEROL, #30 TAB 0 Refills 05/10/15 SARTHAK KIM MD Sep 14, 2021 11:49
--- NOTE | 2021-09-14 12:04 | PDOC ---
ORTHO PROGRESS NOTES DATE: 09/14/21 TIME: 12:03 Subjective Patient tells me that she has been having a low bit more pain lately, but that the pain comes to work when she takes them. She has been working with PT and OT. No complaints. Vitals Vital Signs Date Time Temp Pulse Resp B/P (MAP) Pulse Ox O2 Delivery O2 Flow Rate FiO2 09/14/21 11:39 Room Air 09/14/21 10:45 97.6 67 18 155/58 (90) 96 97.6 Labs Laboratory Tests Test 09/14/21 06:20 White Blood Count 6.8 x10^3/uL (4.0-11.0) Red Blood Count 4.12 x10^6/uL (3.50-5.40) Hemoglobin 12.3 g/dL (12.0-15.5) Hematocrit 37.3 % (36.0-47.0) Mean Corpuscular Volume 91 fL (79-100) Mean Corpuscular Hemoglobin 30 pg (25-35) Mean Corpuscular Hemoglobin Concent 33 g/dL (31-37) Red Cell Distribution Width 13.9 % (11.5-14.5) Platelet Count 138 x10^3/uL (140-400) Sodium Level 141 mmol/L (136-145) Potassium Level 3.7 mmol/L (3.5-5.1) Chloride Level 106 mmol/L (98-107) Carbon Dioxide Level 33 mmol/L (21-32) Anion Gap 2 (6-14) Blood Urea Nitrogen 13 mg/dL (7-20) Creatinine 0.6 mg/dL (0.6-1.0) Estimated GFR (Cockcroft-Gault) 95.2 Glucose Level 99 mg/dL (70-99) Calcium Level 8.2 mg/dL (8.5-10.1) Laboratory Tests Test 09/14/21 06:20 White Blood Count 6.8 x10^3/uL (4.0-11.0) Red Blood Count 4.12 x10^6/uL (3.50-5.40) Hemoglobin 12.3 g/dL (12.0-15.5) Hematocrit 37.3 % (36.0-47.0) Mean Corpuscular Volume 91 fL (79-100) Mean Corpuscular Hemoglobin 30 pg (25-35) Mean Corpuscular Hemoglobin Concent 33 g/dL (31-37) Red Cell Distribution Width 13.9 % (11.5-14.5) Platelet Count 138 x10^3/uL (140-400) Sodium Level 141 mmol/L (136-145) Potassium Level 3.7 mmol/L (3.5-5.1) Chloride Level 106 mmol/L (98-107) Carbon Dioxide Level 33 mmol/L (21-32) Anion Gap 2 (6-14) Blood Urea Nitrogen 13 mg/dL (7-20) Creatinine 0.6 mg/dL (0.6-1.0) Estimated GFR (Cockcroft-Gault) 95.2 Glucose Level 99 mg/dL (70-99) Calcium Level 8.2 mg/dL (8.5-10.1) Notes She is awake and alert and sitting in a chair. Normal motor and sensation are present in her right lower extremity. Dressing shows no drainage. Hinged knee brace in place. Assessment and Plan cont PT/OT spoke with RN to give meds more often LOKESH BOYLE II, MD Sep 14, 2021 12:04
--- NOTE | 2021-09-14 12:52 | PDOC ---
[employer] [facility] PROGRESS NOTE Date of Service DOS: DATE: 09/14/21 TIME: 12:49 Chief Complaint Chief Complaint Right patella fracture - s/p ORIF. Will need acute rehab. F/u post-op H&H, bowel regimen Frequent falls - will have PT assess gait and OT assess her ADLs as she lives alone and may not be safe for home discharge. Hypothyroidism -continue levothyroxine at 37.5 MCG daily HLD - cont statin Anxiety - relaxation exercises reviewed. Urinary incontinence - has external catheter to suction Leg cramps FEN - Regular diet PPX - lovenox FULL CODE Dispo - inpatient History of Present Illness History of Present Illness Ms Estrada is an 86 yo female w/ PMHx hypothyroidism, HLD who presents for elective Open reduction internal fixation right patella fracture on 09/12/2021. Historically, she fell a month ago at the [employer] onto a metal grate. She had been having pain in her right knee for a month since the fall and was referred to ortho by her PCP after outpatient imaging revealed a patella fracture. 09/13: Having some pain after work with therapy from chair to bed. No numbness or tingling no swelling. She has discussed rehab options, specifically requested [facility] acute rehab. No bowel movement as of yet 09/14/2021 No acute events tonight. Patient seen examined bedside. Doing well without any pain at this time. Still waiting for bowel movement. Refusing bowel regimen at this time would like to try to have 1 on her own. Pending rehab placement. Patient's chart, labs, images were reviewed and discussed with RN Vitals/I&O Vitals/I&O: Vital Signs Date Time Temp Pulse Resp B/P (MAP) Pulse Ox O2 Delivery O2 Flow Rate FiO2 09/14/21 12:09 Room Air 09/14/21 10:45 97.6 67 18 155/58 (90) 96 97.6 I & O 09/13/21 09/13/21 09/14/21 15:00 23:00 07:00 Intake Total 300 ml 780 ml Output Total 1300 ml Balance 300 ml -520 ml Physical Exam General: Alert, Oriented X3, Cooperative Heart: Regular rate Lungs: Clear Labs Labs: Laboratory Tests Test 09/14/21 06:20 White Blood Count 6.8 x10^3/uL (4.0-11.0) Red Blood Count 4.12 x10^6/uL (3.50-5.40) Hemoglobin 12.3 g/dL (12.0-15.5) Hematocrit 37.3 % (36.0-47.0) Mean Corpuscular Volume 91 fL (79-100) Mean Corpuscular Hemoglobin 30 pg (25-35) Mean Corpuscular Hemoglobin Concent 33 g/dL (31-37) Red Cell Distribution Width 13.9 % (11.5-14.5) Platelet Count 138 x10^3/uL (140-400) Sodium Level 141 mmol/L (136-145) Potassium Level 3.7 mmol/L (3.5-5.1) Chloride Level 106 mmol/L (98-107) Carbon Dioxide Level 33 mmol/L (21-32) Anion Gap 2 (6-14) Blood Urea Nitrogen 13 mg/dL (7-20) Creatinine 0.6 mg/dL (0.6-1.0) Estimated GFR (Cockcroft-Gault) 95.2 Glucose Level 99 mg/dL (70-99) Calcium Level 8.2 mg/dL (8.5-10.1) Comment Review of Relevant I have reviewed the following items varsha (where applicable) has been applied. Medications: Current Medications Medications (Trade) Dose Ordered Sig/Komal Route PRN Reason Start Time Stop Time Status Last Admin Dose Admin Enoxaparin Sodium (Lovenox 30mg Syringe) 30 mg Q24H SQ 09/13/21 13:00 09/13/21 14:06 Justifications for Admission Other Justification SARTHAK KIM MD Sep 14, 2021 12:52
[2021-09-14] MEDS ORDERED: DOCUSATE SODIUM 100 MG CAPSULE. PO PRN (13:30)
[2021-09-14 15:01] VITALS: BP 143/46
[2021-09-14] MEDS: ENOXAPARIN 30 MG/0.3 ML SYRINGE. SQ SCH (15:42)
[2021-09-14 19:00] VITALS: BP 151/51
[2021-09-14] MEDS: ATORVASTATIN CALCIUM 10 MG TABLET. PO SCH (20:19)
[2021-09-14 23:00] VITALS: BP 166/53
[2021-09-15 03:00] VITALS: BP 169/68
[2021-09-15] MEDS: LEVOTHYROXINE 75 MCG TABLET PO SCH (05:55)
[2021-09-15 07:10] VITALS: BP 156/51
[2021-09-15] MEDS: ASPIRIN 325 MG TABLET PO SCH (07:34)
[2021-09-15] MEDS: HYDROcodone/APAP 5/325MG 1 TAB TABLET PO PRN ×2 (07:34→13:32)
[2021-09-15] MEDS: OMEGA-3 FATTY ACIDS/FISH OIL 1,000 MG CAPSULE. PO SCH (07:34)
[2021-09-15] MEDS: CHOLECALCIFEROL (VITAMIN D3) 1,000 UNIT TABLET PO SCH (07:34)
--- NOTE | 2021-09-15 08:37 | PDOC ---
ORTHO PROGRESS NOTES DATE: 09/15/21 TIME: 08:36 Subjective Pain a little better today, no new complaints. Has been working with PT Vitals Vital Signs Date Time Temp Pulse Resp B/P (MAP) Pulse Ox O2 Delivery O2 Flow Rate FiO2 09/15/21 07:34 16 Room Air 09/15/21 03:00 98.2 91 169/68 (101) 96 98.2 Labs Laboratory Tests Test 09/14/21 06:20 White Blood Count 6.8 x10^3/uL (4.0-11.0) Red Blood Count 4.12 x10^6/uL (3.50-5.40) Hemoglobin 12.3 g/dL (12.0-15.5) Hematocrit 37.3 % (36.0-47.0) Mean Corpuscular Volume 91 fL (79-100) Mean Corpuscular Hemoglobin 30 pg (25-35) Mean Corpuscular Hemoglobin Concent 33 g/dL (31-37) Red Cell Distribution Width 13.9 % (11.5-14.5) Platelet Count 138 x10^3/uL (140-400) Sodium Level 141 mmol/L (136-145) Potassium Level 3.7 mmol/L (3.5-5.1) Chloride Level 106 mmol/L (98-107) Carbon Dioxide Level 33 mmol/L (21-32) Anion Gap 2 (6-14) Blood Urea Nitrogen 13 mg/dL (7-20) Creatinine 0.6 mg/dL (0.6-1.0) Estimated GFR (Cockcroft-Gault) 95.2 Glucose Level 99 mg/dL (70-99) Calcium Level 8.2 mg/dL (8.5-10.1) Notes A and A dressing intact and dry, HKB in place normal m/s present in RLE Assessment and Plan ok to transfer from my standpoint cont Lovenox WBAT RLE with brace locked in extension LOKESH BOYLE II, MD Sep 15, 2021 08:37
--- NOTE | 2021-09-15 09:58 | PDOC ---
[employer] PROGRESS NOTE Date of Service DOS: DATE: 09/15/21 TIME: 09:53 Chief Complaint Chief Complaint Right patella fracture - s/p ORIF. Will need acute rehab. F/u post-op H&H, bowel regimen Frequent falls - will have PT assess gait and OT assess her ADLs as she lives alone and may not be safe for home discharge. Hypothyroidism -continue levothyroxine at 37.5 MCG daily HLD - cont statin Anxiety - relaxation exercises reviewed. Urinary incontinence - has external catheter to suction Leg cramps FEN - Regular diet PPX - lovenox FULL CODE Dispo - inpatient History of Present Illness History of Present Illness Ms Estrada is an 86 yo female w/ PMHx hypothyroidism, HLD who presents for elective Open reduction internal fixation right patella fracture on 09/12/2021. Historically, she fell a month ago at the [employer] onto a metal grate. She had been having pain in her right knee for a month since the fall and was referred to ortho by her PCP after outpatient imaging revealed a patella fracture. 09/13: Having some pain after work with therapy from chair to bed. No numbness or tingling no swelling. She has discussed rehab options, specifically requested [place] [facility] acute rehab. No bowel movement as of yet 09/14/2021 No acute events tonight. Patient seen examined bedside. Doing well without any pain at this time. Still waiting for bowel movement. Refusing bowel regimen at this time would like to try to have 1 on her own. Pending rehab placement. Patient's chart, labs, images were reviewed and discussed with RN 09/15: No overnight events no shortness of breath no chest pain has some tightness in her dorsum of her right foot and notes occasional 15 out of 10 burning sharp pain in her right knee and she has tried to strain to have a bowel movement but unable to she is asking for some assistance with this. Otherwise labs and hemoglobin stable would be appropriate for discharge to rehab. Vitals/I&O Vitals/I&O: Vital Signs Date Time Temp Pulse Resp B/P (MAP) Pulse Ox O2 Delivery O2 Flow Rate FiO2 09/15/21 08:00 Room Air 09/15/21 07:34 16 09/15/21 07:10 97.4 71 156/51 (86) 96 97.4 I & O 09/14/21 09/14/2109/15/22 15:00 23:00 07:00 Intake Total 200 ml Balance 200 ml Physical Exam General: Alert, Oriented X3, Cooperative Heart: Regular rate Lungs: Clear Comment Review of Relevant I have reviewed the following items varsha (where applicable) has been applied. Medications: Current Medications Medications (Trade) Dose Ordered Sig/Komal Route PRN Reason Start Time Stop Time Status Last Admin Dose Admin Docusate Sodium (Colace) 100 mg PRN BID PRN PO CONSTIPATION 09/14/21 13:30 09/14/21 15:43 Justifications for Admission Other Justification ALKA KRAMER MD Sep 15, 2021 09:58
[2021-09-15] MEDS ORDERED: HYDR-2761 PO (10:24)
[2021-09-15] MEDS ORDERED: POLY17PO52 PO (10:26)
[2021-09-15] MEDS ORDERED: DOCU-109 PO (10:26)
--- NOTE | 2021-09-15 10:27 | SNU/HH DC ---
DISCHARGE ORDERS DISCHARGE INFORMATION: DISCHARGE DATE: Sep 14, 2021 FINAL DIAGNOSIS Right patella fracture CONDITION ON DISCHARGE: Stable CODE STATUS: Code Status: Full SENIOR LIVING: SNF STAY <30 DAYS: Yes POST DISCHARGE ORDERS: ACTIVITY ORDERS: Activity as tolerated WEIGHT BEARING STATUS: As tolerated DIET AFTER DISCHARGE: Cardiac CHECKS AFTER DISCHARGE: CHECKS AFTER DISCHARGE: Check blood press - daily FOLLOW-UP: PHYSICIAN FOLLOW-UP: PCP within 2 weeks of discharge ADDITIONAL FOLLOW-UP: Orthopedic surgery in 2 weeks LAB ORDERS FOR FOLLOW-UP: CBC, CMP upon admission ANTICOAGULATION F/U NEEDED: For DVT prophylaxis Lovenox for 2 weeks for DVT pr ophylaxis Additional Instructions: [facility] Orthopedic surgery - Dr. Vel Lyons [address], [address] [place] [address] P: TREATMENT/EQUIPMENT ORDERS: Physical Therapy For: Evalulation/Treatment Occupational Therapy For: Evaluation/Treatment DISCHARGE MEDICATIONS: Home Meds Active Scripts Polyethylene Glycol 3350 (POLYETHYLENE GLYCOL 3350) 17 Gm Powd.pack, 17 GM PO DAILY for Constipation for 30 Days, #30 PKT Prov:ALKA KRAMER MD 09/15/21 Docusate Sodium (COLACE) 100 Mg Capsule, 100 MG PO PRN BID PRN for CONSTIPATION for 30 Days, #60 CAP Prov:ALKA KRAMER MD 09/15/21 Hydrocodone Bit/Acetaminophen (HYDROCODONE-APAP 5-325 ) 1 Tab Tablet, 1 TAB PO PRN Q6HRS PRN for PAIN for 6 Days, #24 TAB Prov:ALKA KRAMER MD 09/15/21 Enoxaparin Sodium (ENOXAPARIN SODIUM) 30 Mg/0.3 Ml Disp.syrin, 30 MG SQ Q24H for DVT prophylaxis for 14 Days, #14 DIS.SYR Prov:SARTHAK KIM MD 09/14/21 Levothyroxine Sodium (SYNTHROID) 75 Mcg Tablet, 37.5 MCG PO DAILYAC for Hypothyroidism for 30 Days, #15 TAB 0 Refills Prov:ALKA KRAMER MD 03/30/20 Reported Medications Om3-Dha/Epa/D3/Lutein/Zeazanth (EYE OMEGA ADVANTAGE SOFTGEL) 1 Each Capsule, 1 EACH PO BID for EYE VITAMIN, CAP 09/05/21 Cholecalciferol (Vitamin D3) (Vitamin D3 ) 25 Mcg Tablet, 25 MCG PO DAILY for SUPPLEMENT, TAB 1,000 UNITS = 25 MCG 09/05/21 Aspirin (ASPIRIN) 325 Mg Tablet, 325 MG PO QODAY for HEART VITAMIN 4 TIMES/WEEK 05/10/15 Atorvastatin Calcium (LIPITOR) 10 Mg Tablet, 10 MG PO HS for FOR CHOLESTEROL, #30 TAB 0 Refills 05/10/15 ALKA KRAMER MD Sep 15, 2021 10:27
[2021-09-15 11:00] VITALS: BP 148/50
[2021-09-15] MEDS ORDERED: GABAPENTIN 100 MG CAPSULE. PO SCH (11:00)
[2021-09-15] MEDS ORDERED: POLYETHYLENE GLYCOL 3350 17 GM PACKET. PO SCH (11:00)
[2021-09-15] MEDS ORDERED: BISACODYL 10 MG SUPP.RECT. PR ONE (11:00)
[2021-09-15] MEDS: ENOXAPARIN 30 MG/0.3 ML SYRINGE. SQ SCH (13:00)
--- NOTE | 2021-09-15 13:41 | NUR ---
Ranjana had good results from her supp. states she is feeling better. saline lock removed. daughter at bedside. original surgical dressing removed. incision was glued. cleansed with chlor prep then Aquacel Ag applied. report to Josh meyers. Brace remains on in the locked position
--- NOTE | 2021-09-15 13:42 | PDOC3 ---
Discharge Summary Visit Information Date of Admission: Sep 12, 2021 Date of Discharge: Sep 15, 2021 Admitting Diagnosis: Right patella fracture Final Diagnosis Right patella fracture Brief Hospital Course Allergies Allergies Coded Allergies Type Severity Reaction Last Updated Verified diphenhydramine Allergy Severe TONGUE SWELLING 09/05/21 No Sulfa (Sulfonamide Antibiotics) Allergy Intermediate Unknown 09/05/21 No doxycycline Allergy Intermediate COLD SWEATS, DIARRHEA,STOMACH UPSET, VOMITING 09/05/21 No fexofenadine Allergy Intermediate Hives 09/05/21 Yes propoxyphene Allergy Intermediate DIZZY, PALE 09/05/21 No lorazepam Allergy Mild "KNOCKED ME OUT" 09/05/21 No Vital Signs Vital Signs Date Time Temp Pulse Resp B/P (MAP) Pulse Ox O2 Delivery O2 Flow Rate FiO2 09/15/21 11:00 97.6 72 16 148/50 (82) 96 Room Air 97.6 Lab Results Laboratory Tests Test 09/14/21 06:20 White Blood Count 6.8 x10^3/uL (4.0-11.0) Red Blood Count 4.12 x10^6/uL (3.50-5.40) Hemoglobin 12.3 g/dL (12.0-15.5) Hematocrit 37.3 % (36.0-47.0) Mean Corpuscular Volume 91 fL (79-100) Mean Corpuscular Hemoglobin 30 pg (25-35) Mean Corpuscular Hemoglobin Concent 33 g/dL (31-37) Red Cell Distribution Width 13.9 % (11.5-14.5) Platelet Count 138 x10^3/uL (140-400) Sodium Level 141 mmol/L (136-145) Potassium Level 3.7 mmol/L (3.5-5.1) Chloride Level 106 mmol/L (98-107) Carbon Dioxide Level 33 mmol/L (21-32) Anion Gap 2 (6-14) Blood Urea Nitrogen 13 mg/dL (7-20) Creatinine 0.6 mg/dL (0.6-1.0) Estimated GFR (Cockcroft-Gault) 95.2 Glucose Level 99 mg/dL (70-99) Calcium Level 8.2 mg/dL (8.5-10.1) Brief Hospital Course Ms Estrada is an 86 yo female w/ PMHx hypothyroidism, HLD who presents for elective Open reduction internal fixation right patella fracture on 09/12/2021. [place]. She had been having pain in her right knee for a month since the fall and was referred to ortho by her PCP after outpatient imaging revealed a patella fracture. 09/13: Having some pain after work with therapy from chair to bed. No numbness or tingling no swelling. She has discussed rehab options, specifically requested [facility] acute rehab. No bowel movement as of yet 09/14/2021 No acute events tonight. Patient seen examined bedside. Doing well without any pain at this time. Still waiting for bowel movement. Refusing bowel regimen at this time would like to try to have 1 on her own. Pending rehab placement. Patient's chart, labs, images were reviewed and discussed with RN 09/15: No overnight events no shortness of breath no chest pain has some tightn ess in her dorsum of her right foot and notes occasional 15 out of 10 burning sharp pain in her right knee and she has tried to strain to have a bowel movement but unable to she is asking for some assistance with this. Otherwise labs and hemoglobin stable would be appropriate for discharge to rehab. Consults: ortho Problem List: Right patella fracture - s/p ORIF. Will need acute rehab. F/u post-op H&H, bowel regimen Frequent falls - will have PT assess gait and OT assess her ADLs as she lives alone and may not be safe for home discharge. Hypothyroidism -continue levothyroxine at 37.5 MCG daily HLD - cont statin Anxiety - relaxation exercises reviewed. Urinary incontinence - has external catheter to suction Leg cramps Greater than 30 minutes spent on d/c to SNF Discharge Information Condition at Discharge: Improved Follow Up: Weeks (1) Disposition/Orders: D/C to Another Facility Scheduled Aspirin (Aspirin) 325 Mg Tablet, 325 MG PO QODAY for HEART VITAMIN, (Reported) 4 TIMES/WEEK Entered as Reported by: Vandana Guevara on 05/10/15 132 Last Taken: Unknown Dose on 08/28/21 Last Action: Continued on 09/12/21 1329 by SHARON GIRALDO Atorvastatin Calcium (Lipitor) 10 Mg Tablet, 10 MG PO HS for cholesterol, #30 Ref 0 (Reported) Entered as Reported by: Vandana Guevara on 05/10/15 1326 Last Taken: Unknown Dose on 09/11/21 Last Action: Continued on 09/12/211328 by SHARON GIRALDO Cholecalciferol (Vitamin D3) (Vitamin D3 ) 25 Mcg Tablet, 25 MCG PO DAILY for SUPPLEMENT, (Reported) 1,000 UNITS = 25 MCG Entered as Reported by: SHAE GONZALEZ on 09/05/211606 Last Taken: Unknown Dose on 09/12/2130 Last Action: Continued on 09/12/211328 by SHARON GIRALDO Enoxaparin Sodium (Enoxaparin Sodium) 30 Mg/0.3 Ml Disp.syrin, 30 MG SQ Q24H for DVT prophylaxis for 14 Days, #14 Prescribed by: SARTHAK KIM MD on 09/14/21 1147 Levothyroxine Sodium (Synthroid) 75 Mcg Tablet, 37.5 MCG PO DAILYAC for Hypo thyroidism for 30 Days, #15 Ref 0 Prescribed by: ALKA KRAMER MD on 03/30/20 1457 Last Taken: Unknown Dose on 09/12/21629 Last Action: Continued on 09/12/211328 by SHARON GIRALDO Om3-Dha/Epa/D3/Lutein/Zeazanth (Eye Samson Advantage Softgel) 1 Each Capsule, 1 EACH PO BID for EYE VITAMIN, (Reported) Entered as Reported by: SHAE GONZALEZ on 09/05/211606 Last Action: Converted on 09/12/211328 by SHARON GIRALDO Polyethylene Glycol 3350 (Polyethylene Glycol 3350) 17 Gm Powd.pack, 17 GM PO DAILY for Constipation for 30 Days, #30 Prescribed by: ALKA KRAMER MD on 09/15/21 1026 Scheduled PRN Docusate Sodium (Colace) 100 Mg Capsule, 100 MG PO PRN BID PRN for CONSTIPATION for 30 Days, #60 Prescribed by: ALKA KRAMER MD on 09/15/21 1026 Hydrocodone Bit/Acetaminophen (Hydrocodone-Apap 5-325 ) 1 Tab Tablet, 1 TAB PO PRN Q6HRS PRN for PAIN for 6 Days, #24 Prescribed by: ALKA KRAMER MD on 09/15/21 1025 Justicifation of Admission Dx: Justifications for Admission: Justification of Admission Dx: Yes AKLA KRAMER MD Sep 15, 2021 13:41
--- NOTE | 2021-09-15 15:15 | NUR ---
transferred to [facility]. report called family with her. discussed medications, follow up restrictions to daily activities and incisional care.
== END 2021-09-15 15:15 | DRG 517 ==
LOC: OPSVCIP 08:05 → EDSTATUS 10:00 → 4 NORTH 13:00
PROVIDERS: ADMIT Orthopaedic Surgery Sports Medicine; ATTEND Orthopaedic Surgery Sports Medicine
PROC: 0QSD04Z Reposition Right Patella with Internal Fixation Device, Open Approach (ICD-10-PCS; principal; 2021-09-12 10:00)
DX: S82.031A Displaced transverse fracture of right patella, initial encounter for closed fracture (principal); E03.9 Hypothyroidism, unspecified; E78.5 Hyperlipidemia, unspecified; F17.210 Nicotine dependence, cigarettes, uncomplicated; Z20.822 Contact with and (suspected) exposure to COVID-19; F41.9 Anxiety disorder, unspecified; R29.6 Repeated falls; S82.001A Unspecified fracture of right patella, initial encounter for closed fracture; Z75.1 Person awaiting admission to adequate facility elsewhere; Z79.890 Hormone replacement therapy; Z83.3 Family history of diabetes mellitus; Z88.2 Allergy status to sulfonamides; Z88.8 Allergy status to other drugs, medicaments and biological substances; W18.39XA Other fall on same level, initial encounter; Y93.89 Activity, other specified; Y92.89 Other specified places as the place of occurrence of the external cause; Y99.8 Other external cause status
CPT/HCPCS: 36415; 76000; 80048; 85027; A4657; A4930; A6253; A6402; A6449; C1713; J0690; J1100; J1650; J2405; J2704; J3010; J3490; J7120; 97110-GP; 97116-GP; 97530-GO; 97535-GO; G0378

== ENCOUNTER 2021-09-29 19:06 | Emergency (ER) | payer MEDICARE, OTHER ==
[~2021-09-29] VITALS: Ht 152.4 cm; Wt 53.2 kg
[~2021-09-29 19:06] MED LIST changes: +DOCU-109 PO; +ENOX30DI3 SQ; +HYDR-2761 PO; -HYDROmorphone 2 MG/ML INJ. IVP PRN; -IV RINGERS,LACTATED 1000ML 1,000 ML IV SCH; -MORPHINE SULFATE 2 MG/ML INJ. IVP PRN; +POLY17PO52 PO; -PROCHLORPERAZINE 10 MG/2 ML VIAL. IVP PRN; -ceFAZolin SODIUM IV Push 1 GM VIAL. IVP PRN; -fentaNYL PF VIAL 100 MCG/2 ML VIAL IVP PRN
--- NOTE | 2021-09-29 19:36 | ED.ADGEN ---
Past Medical History Past Medical History: High Cholesterol, Hypothyroid Past Surgical History: Hysterectomy Smoking Status: Former Smoker Alcohol Use: Rarely Drug Use: None General Adult EDM: Chief Complaint: LOWER EXTREMITY EDEMA HPI: HPI: Patient is a 86 year old female sent in by her primary care provider for concern for blood clots in her right leg. Patient had a right patella ORIF September 05. Patient states she has had swelling in her right lower extremity with calf pain. Patient was in rehab and discharged home 3 days ago and has been seeing home physical therapy Review of Systems: Review of Systems: All other systems within normal limits except for as noted in the HPI Allergies: Allergies: Allergies Coded Allergies Type Severity Reaction Last Updated Verified diphenhydramine Allergy Severe TONGUE SWELLING 09/29/21 Yes Sulfa (Sulfonamide Antibiotics) Allergy Intermediate Unknown 09/29/21 Yes doxycycline Allergy Intermediate COLD SWEATS, DIARRHEA,STOMACH UPSET, VOMITING 09/29/21 Yes fexofenadine Allergy Intermediate Hives 09/29/21 Yes propoxyphene Allergy Intermediate DIZZY, PALE 09/29/21 Yes lorazepam Adverse Reaction Intermediate "KNOCKED ME OUT" 09/29/21 Yes Physical Exam: PE: Constitutional: Well developed, well nourished, no acute distress, non-toxic appearance. [] HENT: Normocephalic, atraumatic, bilateral external ears normal, nose normal. [] Eyes: PERRLA, conjunctiva normal, no discharge. [] Neck: No rigidity, supple, no stridor. [] Cardiovascular: Regular rate and rhythm, brisk cap refill [] Lungs & Thorax: Non labored symmetric respirations, no tachypnea or respiratory distress [] Abdomen: Soft, nondistended. Skin: Warm, dry, no erythema, no rash. Right anterior knee dressing clean and intact [] Back: Unremarkable Extremities: No deformities, range of motion grossly intact, right lower extremity pitting edema distal to knee, with right calf tenderness. Neurologic: Alert and oriented X 3, no focal deficits noted. [] Psychologic: Affect normal, judgement normal, mood normal. [] Current Patient Data: Labs: Laboratory Tests Test 09/29/21 19:35 White Blood Count 6.3 x10^3/uL (4.0-11.0) Red Blood Count 4.55 x10^6/uL (3.50-5.40) Hemoglobin 13.7 g/dL (12.0-15.5) Hematocrit 41.4 % (36.0-47.0) Mean Corpuscular Volume 91 fL (79-100) Mean Corpuscular Hemoglobin 30 pg (25-35) Mean Corpuscular Hemoglobin Concent 33 g/dL (31-37) Red Cell Distribution Width 14.1 % (11.5-14.5) Platelet Count 233 x10^3/uL (140-400) Neutrophils (%) (Auto) 59 % (31-73) Lymphocytes (%) (Auto) 28 % (24-48) Monocytes (%) (Auto) 9 % (0-9) Eosinophils (%) (Auto) 3 % (0-3) Basophils (%) (Auto) 1 % (0-3) Neutrophils # (Auto) 3.7 x10^3/uL (1.8-7.7) Lymphocytes # (Auto) 1.8 x10^3/uL (1.0-4.8) Monocytes # (Auto) 0.6 x10^3/uL (0.0-1.1) Eosinophils # (Auto) 0.2 x10^3/uL (0.0-0.7) Basophils # (Auto) 0.1 x10^3/uL (0.0-0.2) Prothrombin Time 13.2 SEC (11.7-14.0) Prothrombin Time INR 1.0 (0.8-1.1) D-Dimer (Paty) 0.80 ug/mlFEU (0.00-0.50) H Sodium Level 140 mmol/L (136-145) Potassium Level 4.0 mmol/L (3.5-5.1) Chloride Level 102 mmol/L (98-107) Carbon Dioxide Level 30 mmol/L (21-32) Anion Gap 8 (6-14) Blood Urea Nitrogen 16 mg/dL (7-20) Creatinine 0.8 mg/dL (0.6-1.0) Estimated GFR (Cockcroft-Gault) 68.3 BUN/Creatinine Ratio 20 (6-20) Glucose Level 152 mg/dL (70-99) H Lactic Acid Level 1.0 mmol/L (0.4-2.0) Calcium Level 9.2 mg/dL (8.5-10.1) Total Bilirubin 0.5 mg/dL (0.2-1.0) Aspartate Amino Transferase (AST) 29 U/L (15-37) Alanine Aminotransferase (ALT) 44 U/L (14-59) Alkaline Phosphatase 97 U/L (46-116) Total Protein 7.1 g/dL (6.4-8.2) Albumin 3.6 g/dL (3.4-5.0) Albumin/Globulin Ratio 1.0 (1.0-1.7) Laboratory Tests 09/29/21 19:35 Laboratory Tests 09/29/21 19:35 Vital Signs: Vital Signs Date Time Temp Pulse Resp B/P (MAP) Pulse Ox O2 Delivery O2 Flow Rate FiO2 09/29/21 19:13 98.5 65 16 176/74 (108) 98 Room Air 98.5 EKG: EKG: [] Heart Score: C/O Chest Pain: No Risk Factors: Risk Factors: DM, Current or recent (<one month) smoker, HTN, HLP, family history of CAD, obesity. Risk Scores: Score 0 - 3: 2.5% MACE over next 6 weeks - Discharge Home Score 4 - 6: 20.3% MACE over next 6 weeks - Admit for Clinical Observation Score 7 - 10: 72.7% MACE over next 6 weeks - Early Invasive Strategies Radiology/Procedures: Radiology/Procedures: [facility] [address] [place] [address] IMAGING REPORT Signed PATIENT: TEJAS ANTOINE ACCOUNT: [id number] : 1935 LOCATION: ER AGE: 86 SEX: F EXAM STATUS: REG ER ORD. PHYSICIAN: MARIANN CROSS MD REASON: swelling PROCEDURE: VENOUS LOWER EXTREMITY RIGHT EXAMINATION: US DPLX VENOUS EXTREMITY LOWER RT (LOWER EXTREMITY VENOUS ULTRASOUND) CLINICAL HISTORY: Right lower extremity edema. TECHNIQUE: Sonographic grayscale images obtained of the right lower extremity deep venous system with color flow Doppler, compression, and augmentation techniques as indicated. Images obtained and stored in a permanent archive. COMPARISON: None FINDINGS: No evidence of absent flow or incompressibility within the common femoral vein, femoral vein, or popliteal vein. Visualized calf veins appear patent on limited evaluation. IMPRESSION: No evidence of right lower extremity DVT. Electronically signed by: Willie Gardiner DO (09/29/2021 8:48 PM) [facility] DICTATED and SIGNED BY: WILLIE GARDINER DO DATE: 09/29/212047 [] Course & Med Decision Making: Course & Med Decision Making Pertinent Labs and Imaging studies reviewed. (See chart for details) Labs do not indicate any signs of ischemia or infection. Age-adjusted dimer is still within normal limits however patient is postop and is expected to be elevated. No evidence of DVT on ultrasound. Discussed with patient to elevate leg more frequently and follow-up with primary care provider for repeat ultrasound in 1 week if swelling is not resolving with elevation. [] Dragon Disclaimer: Dragon Disclaimer: This electronic medical record was generated, in whole or in part, using a voice recognition dictation system. Departure Departure Impression: Primary Impression: Edema of right lower extremity Disposition: HOME / SELF CARE / HOMELESS Condition: STABLE Referrals: CINDI ELLIOTT MD (PCP) Patient Instructions: Peripheral Edema Additional Instructions: If symptoms not improving with elevation of leg and compression stockings, follow-up with primary care provider for repeat ultrasound in 1 week. MARIANN CROSS MD September 29, 2021 19:36
[2021-09-29 19:46] LABS: BASO # 0.1 x10^3/uL (0.0-0.2); BASO % 1 % (0-3); EOS # 0.2 x10^3/uL (0.0-0.7); EOS % 3 % (0-3); HEMATOCRIT 41.4 % (36.0-47.0); HEMOGLOBIN 13.7 g/dL (12.0-15.5); LYMPH # 1.8 x10^3/uL (1.0-4.8); LYMPH % 28 % (24-48); MEAN CORPUSCULAR HEMOGLOBIN 30 pg (25-35); MEAN CORPUSCULAR HGB CONC 33 g/dL (31-37); MEAN CORPUSCULAR VOLUME 91 fL (79-100); MONO # 0.6 x10^3/uL (0.0-1.1); MONO % 9 % (0-9); NEUT # 3.7 x10^3/uL (1.8-7.7); NEUT % 59 % (31-73); PLATELET COUNT 233 x10^3/uL (140-400); RED BLOOD COUNT 4.55 x10^6/uL (3.50-5.40); RED CELL DISTRIBUTION WIDTH 14.1 % (11.5-14.5); WHITE BLOOD COUNT 6.3 x10^3/uL (4.0-11.0)
[2021-09-29 20:02] LABS: CALCIUM 9.2 mg/dL (8.5-10.1); CREATININE 0.8 mg/dL (0.6-1.0); GFR 68.3
[2021-09-29 20:05] LABS: PROTHROMBIN TIME PATIENT 13.2 SEC (11.7-14.0)
[2021-09-29 20:09] LABS: ALBUMIN 3.6 g/dL (3.4-5.0); TOTAL BILIRUBIN 0.5 mg/dL (0.2-1.0); TOTAL PROTEIN 7.1 g/dL (6.4-8.2)
[2021-09-29 20:14] LABS: D-DIMER 0.8 ug/mlFEU (0.00-0.50)
--- NOTE | 2021-09-29 20:50 | RAD ---
EXAMINATION: US DPLX VENOUS EXTREMITY LOWER RT (LOWER EXTREMITY VENOUS ULTRASOUND) CLINICAL HISTORY: Right lower extremity edema. TECHNIQUE: Sonographic grayscale images obtained of the right lower extremity deep venous system with color flow Doppler, compression, and augmentation techniques as indicated. Images obtained and stor ed in a permanent archive. COMPARISON: None FINDINGS: No evidence of absent flow or incompressibility within the common femoral vein, femoral vein, or popl iteal vein. Visualized calf veins appear patent on limited evaluation. IMPRESSION: No evidence of right lower extremity DVT. Electronically signed by: Willie Elias DO (09/29/2021 8:48 PM) [facility]
[2021-09-29 20:57] VITALS: BP 193/79
== END 2021-09-29 21:22 | disposition home or self-care (01) ==
LOC: ER 19:06
DX: R60.0 Localized edema (principal); M79.661 Pain in right lower leg; E78.00 Pure hypercholesterolemia, unspecified; E03.9 Hypothyroidism, unspecified; Z87.891 Personal history of nicotine dependence; Z88.1 Allergy status to other antibiotic agents; Z88.2 Allergy status to sulfonamides; Z88.5 Allergy status to narcotic agent; Z88.8 Allergy status to other drugs, medicaments and biological substances
CPT/HCPCS: 36415; 80053; 83605; 85025; 85379; 85610; 93971; 99284